=== PATIENT | male | born 1960 | race Asian ===

== ENCOUNTER 2018-09-29 05:53 | Emergency (ER) | payer MEDICAID ==
[~2018-09-29] VITALS: Ht 162.6 cm; Wt 68.0 kg
[2018-09-29 05:55] VITALS: BP_SYST 159
[2018-09-29] MEDS ORDERED: NACL 0.9% 1,000 ML IV ONE (06:04)
[2018-09-29] MEDS ORDERED: NA PHOS,M-B/NA PHOS,DI-BA 118 ML (FLEET ENEMA) RC ONE ×2 (06:15→06:30)
[2018-09-29] MEDS ORDERED: FAMOTIDINE PF 20 MG/2 ML VIAL IVP ONE (06:15)
[2018-09-29] MEDS ORDERED: KETOROLAC TROMETHAMINE 30 MG VIAL IVP ONE (06:30)
[2018-09-29] MEDS ORDERED: metroNIDAZOLE 500 mg/NS 100 ML IV ONE (06:30)
[2018-09-29] MEDS ORDERED: cefOXitin SODIUM 1 GM in D5W 50 ML IV ONE (06:30)
[2018-09-29] MEDS ORDERED: METHOCARBAMOL 500 MG TABLET PO ONE (06:30)
[2018-09-29] MEDS ORDERED: METHOCARBAMOL 500 MG TABLET ONE (06:51)
[2018-09-29 07:05] LABS: HEMOGLOBIN 16.8 g/dL (14.0-18.0); RED BLOOD CELL COUNT(AUTO) 6.43 MIL/uL (4.2-6.2); WHITE BLOOD COUNT (AUTO) 8.7 K/uL (4.8-10.8)
[2018-09-29 07:06] LABS: BASOPHILS % (AUTO) 0.4 % (0.0-2.0); EOSINOPHILS # (AUTO) 0.2 K/uL (0.0-0.4); EOSINOPHILS % (AUTO) 1.9 % (0.0-4.0); HEMATOCRIT 51.6 % (36-54); LYMPHOCYTES # (AUTO) 1.4 K/uL (1.0-5.5); LYMPHOCYTES % (AUTO) 16.1 % (20.5-51.5); MEAN CORPUSCULAR HEMOGLOBIN 26 pg (27-31); MEAN CORPUSCULAR HGB CONC 33 % (32-36); MEAN CORPUSCULAR VOLUME 80 fL (79.0-98.0); MONOCYTES # (AUTO) 0.6 K/uL (0.0-1.0); MONOCYTES % (AUTO) 7.3 % (1.7-9.3); NEUTROPHILS # (AUTO) 6.4 K/uL (1.8-7.7); NEUTROPHILS % (AUTO) 74.3 % (40.0-70.0); PLATELET COUNT (AUTO) 318 K/uL (130-430); RED CELL DISTRIBUTION WIDTH 14.7 % (9.0-15.0)
[2018-09-29 07:27] LABS: CALCIUM 8.5 mg/dL (8.4-11.0); CREATININE 1.11 mg/dL (0.55-1.30); POTASSIUM 3.7 mmol/L (3.5-5.1)
[2018-09-29 07:33] LABS: ALBUMIN 4.3 g/dL (3.4-4.8); TOTAL BILIRUBIN 0.7 mg/dL (0.0-1.0)
[2018-09-29 07:58] LABS: BILIRUBIN,URINE NEGATIVE (NEGATIVE); CLARITY/URINE CLEAR (CLEAR); COLOR,URINE YELLOW (YELLOW); GLUCOSE,URINE NEGATIVE (NEGATIVE); KETONES,URINE NEGATIVE (NEGATIVE); LEUKOCYTE ESTERASE ,URINE NEGATIVE (NEGATIVE); NITRITE, URINE NEGATIVE (NEGATIVE); PROTEIN URINE NEGATIVE (NEGATIVE); UROBILINOGEN,URINE 0.2 (0.2-1.0)
[2018-09-29 08:38] LABS: BLOOD, URINE TRACE (NEGATIVE)
[2018-09-29 08:39] LABS: BACTERIA,URINE RARE /HPF (None Seen); MUCUS,URINE 1+ /LPF (None Seen); WBC,URINE 0-3 /HPF (0-3)
[2018-09-29 08:50] VITALS: BP_SYST 144
== END 2018-09-29 08:50 | disposition home or self-care (01) ==
LOC: SED 05:53
DX: K92.2 Gastrointestinal hemorrhage, unspecified (principal); K56.41 Fecal impaction; M54.5 Low back pain; Z88.0 Allergy status to penicillin; Z91.013 Allergy to seafood
CPT/HCPCS: 36415; 74176; 80053; 81000; 83690; 85025; 96374; 96375; 99284; J1885; J3490; J7030

== ENCOUNTER 2019-01-17 00:37 | Emergency (ER) | payer MEDICAID ==
[~2019-01-17] VITALS: Ht 162.6 cm; Wt 68.0 kg
[2019-01-17 00:48] VITALS: BP_SYST 134
[2019-01-17 01:11] LABS: BILIRUBIN,URINE 1+ (NEGATIVE); BLOOD, URINE 3+ (NEGATIVE); CLARITY/URINE CLOUDY (CLEAR); COLOR,URINE RED (YELLOW); GLUCOSE,URINE NEGATIVE (NEGATIVE); KETONES,URINE NEGATIVE (NEGATIVE); LEUKOCYTE ESTERASE ,URINE NEGATIVE (NEGATIVE); NITRITE, URINE POSITIVE (NEGATIVE); PROTEIN URINE 2+ (NEGATIVE); UROBILINOGEN,URINE 0.2 (0.2-1.0)
[2019-01-17 01:17] LABS: RBC,URINE >100 /HPF (0-3)
[2019-01-17 01:18] LABS: BACTERIA,URINE MANY /HPF (None Seen); WBC,URINE 0-3 /HPF (0-3); YEAST,URINE Few /HPF (None Seen)
[2019-01-17 01:26] LABS: HEMATOCRIT 45.8 % (36-54); MEAN CORPUSCULAR HEMOGLOBIN 26 pg (27-31); MEAN CORPUSCULAR HGB CONC 33 % (32-36); MEAN CORPUSCULAR VOLUME 80 fL (79.0-98.0); PLATELET COUNT (AUTO) 280 K/uL (130-430); RED BLOOD CELL COUNT(AUTO) 5.75 MIL/uL (4.2-6.2); RED CELL DISTRIBUTION WIDTH 14.4 % (9.0-15.0); WHITE BLOOD COUNT (AUTO) 9.8 K/uL (4.8-10.8)
[2019-01-17 01:31] LABS: CALCIUM 9.2 mg/dL (8.4-11.0); POTASSIUM 3.6 mmol/L (3.5-5.1)
[2019-01-17 01:37] LABS: TOTAL BILIRUBIN 1.1 mg/dL (0.0-1.0)
[2019-01-17 01:57] LABS: ATYPICAL LYMPHOCYTES % 0 % (0-0); BAND % (MANUAL) 2 % (0-6); BASOPHILS % (MANUAL) 0 % (0-2); EOSINOPHILS % (MANUAL) 1 % (0-7); LYMPHOCYTES % (MANUAL) 29 % (20-46); MONOCYTES % (MANUAL) 12 % (0-11)
[2019-01-17] MEDS ORDERED: LEVOFLOXACIN 500 MG TABLET PO ONE (03:30)
[2019-01-17 03:40] VITALS: BP_SYST 126
== END 2019-01-17 03:40 | disposition home or self-care (01) ==
LOC: SED 00:37
DX: N20.0 Calculus of kidney (principal); N39.0 Urinary tract infection, site not specified; I10 Essential (primary) hypertension; Z88.0 Allergy status to penicillin; Z91.013 Allergy to seafood
CPT/HCPCS: 36415; 80053; 81000-TC; 83690-TC; 85007; 85027; 87086; 99284